=== PATIENT | male | born 1980 | race African-American/Black ===

== ENCOUNTER 2016-12-04 13:59 | Emergency (ER) | payer MEDICAID ==
[~2016-12-04] VITALS: Ht 177.8 cm; Wt 117.9 kg
[2016-12-04 14:22] VITALS: BP 127/76
--- NOTE | 2016-12-04 14:28 | PHYS DOC ---
Adult General Chief Complaint Chief Complaint: FOOT INJURY PAIN HPI HPI Patient is a 36 year old nail presents to the emergency department stating that he fell down some stairs on as he has tried to help his parents move. He states that he has been traveling from [place] to here with the splint in place. He states that he was told to follow-up once he arrived in [place] is with a emergency department to get a follow-up visit with orthopedic. Patient states that he has having increased pain and discomfort. Patient denies any numbness or tingling. Review of Systems Review of Systems Constitutional: Denies fever or chills [] Eyes: Denies change in visual acuity, redness, or eye pain [] HENT: Denies nasal congestion or sore throat [] Respiratory: Denies cough or shortness of breath [] Cardiovascular: No additional information not addressed in HPI [] GI: Denies abdominal pain, nausea, vomiting, bloody stools or diarrhea [] : Denies dysuria or hematuria [] Musculoskeletal: Denies back pain. Right ankle/right foot pain Integument: Denies rash or skin lesions [] Neurologic: Denies headache, focal weakness or sensory changes [] Endocrine: Denies polyuria or polydipsia [] Physical Exam Physical Exam Constitutional: Well developed, well nourished, no acute distress, non-toxic appearance. [] HENT: Normocephalic, atraumatic, bilateral external ears normal, oropharynx moist, no oral exudates, nose normal. [] Eyes: PERRLA, EOMI, conjunctiva normal, no discharge. [] Neck: Normal range of motion, no tenderness, supple, no stridor. [] Cardiovascular:Heart rate regular rhythm Lungs & Thorax: No respiratory distress noted Skin: Warm, dry, no erythema, no rash. [] Back: No tenderness Extremities: Right ankle/right lateral foot tenderness, no cyanosis, no clubbing , ROM intact, no edema. No deformity noted patient did have swelling noted to the area. No discoloration noted Neurologic: Alert and oriented X 3, normal motor function, normal sensory function, no focal deficits noted. [] Psychologic: Affect normal, judgement normal, mood normal. [] Current Patient Data Vital Signs Vital Signs Date Time Temp Pulse Resp B/P (MAP) Pulse Ox O2 Delivery O2 Flow Rate FiO2 12/04/16 14:22 97.2 85 18 96 Room Air 97.2 EKG EKG [] Radiology/Procedures Radiology/Procedures [][facility] [address] [place] [address] IMAGING REPORT Signed PATIENT: KRISTI DUMONT ACCOUNT: [id number] : 1980 LOCATION: ER AGE: 36 SEX: M EXAM [id number] STATUS: PRE ER ORD. PHYSICIAN: CASSIE HART APRN REASON: FALL, RT FOOT FX PROCEDURE: ANKLE RIGHT 3V; FOOT RIGHT 3V Indication fall. Pain. AP oblique and lateral views of the right ankle were obtained. Similarly AP oblique and lateral views of the foot were obtained. The ankle appears unremarkable. No fracture or bony abnormality is seen at the ankle. Views of the foot demonstrate, best on the lateral view, findings suggestive of avulsion fractures off the upper talus and navicular. An additional bony abnormality involving the foot is not seen. Some soft tissue swelling is noted. IMPRESSION: Unremarkable ankle. Findings involving the foot compatible with small avulsion fractures off the talus and navicular. DICTATED and SIGNED BY: STIVEN NEWELL MD DATE: 12/04/161522 CC: CASSIE HART APRN ~ Course & Med Decision Making Course & Med Decision Making Pertinent Labs and Imaging studies reviewed. (See chart for details) X-rays were positive for fracture, small avulsion fracture of the avulsion fracture off the talus and navicular area. Patient was placed posterior short leg splint. Patient has his own crutches. He'll be provided with orthopedic name and number to follow up with. Recommended ibuprofen for pain and discomfort. He'll be provided with hydrocodone for discomfort patient was instructed this medication will cause drowsiness do not take any be alert and oriented. Patient will be discharged home in stable condition signs and symptoms to return back to emergency department as been provided. Patient had all his questions answered at the bedside. [] Dragon Disclaimer Dragon Disclaimer This electronic medical record was generated, in whole or in part, using a voice recognition dictation system. Departure Departure Impression: Primary Impression: Foot fracture, right Disposition: 01 HOME, SELF-CARE Condition: STABLE Referrals: SHARON SOTO II, MD Patient Instructions: Crutch Use, [id number], Foot Fracture-Brief, Splint Care, [id number] Additional Instructions: Activity as tolerated. No weightbearing on the right foot. Usual crutches to help with ambulation. Ibuprofen for pain and discomfort. He may take hydrocodone for severe pain and discomfort have this medication will cause drowsiness do not take any be alert and oriented. Ice packs on 20 minutes off 20 minutes several times a day. Keep the splint in place keep it clean and dry. Follow-up with orthopedic in the next week. Return back to emergency prior signs symptoms of become worse. Scripts Hydrocodone/Apap 5-325 (NORCO 5-325 TABLET) 1 Each Tablet 1 TAB PO PRN Q6HRS Y for PAIN, #20 TAB 0 Refills Prov: CASSIE HART APRN 12/04/16 Splinting Splinting : Location: right ankle/foot Hand-Made Type: orthoglass Splint: posterior short leg Pre-Proc Neuro Vasc Exam: normal Post-Proc Neuro Vasc Exam: normal CASSIE HART PATTERN REPAIR PERSON Dec 04, 2016 14:28
--- NOTE | 2016-12-04 15:30 | RAD ---
Indication fall. Pain. AP oblique and lateral views of the right ankle were obtained. Similarly AP oblique and lateral views of the foot were obtained. The ankle appears unremarkable. No fracture or bony abnormality is seen at the ankle. Views of the foot demonstrate, best on the lateral view, findings suggestive of avulsion fractures off the upper talus and navicular. An additional bony abnormality involving the foot is not seen. Some soft tissue swelling is noted. IMPRESSION: Unremarkable ankle. Findings involving the foot compatible with small avulsion fractures off the talus and navicular.
[2016-12-04] MEDS ORDERED: HYDR-971 PO (16:16)
== END 2016-12-04 16:20 | disposition home or self-care (01) ==
LOC: ER 13:59
DX: S92.901A Unspecified fracture of right foot, initial encounter for closed fracture (principal); W10.9XXA Fall (on) (from) unspecified stairs and steps, initial encounter; Y93.89 Activity, other specified; Y99.8 Other external cause status; Y92.89 Other specified places as the place of occurrence of the external cause
CPT/HCPCS: 29125; 73610; 73630; 99284-25